=== PATIENT | female | born 2005 | race Caucasian/White ===

== ENCOUNTER 2024-10-18 17:53 | Inpatient (IN) | payer OTHER ==
[~2024-10-18] VITALS: Ht 160 cm; Wt 95.7 kg
[2024-10-19] MEDS ORDERED: MAGNESIUM HYDROXIDE/AL HYDROX 30 ML CUP PO PRN (06:00)
[2024-10-19] MEDS ORDERED: LACTATED RINGER'S 1,000 ML IV SCH (06:00)
[2024-10-19] MEDS ORDERED: CALCIUM CARBONATE 500 MG CHEW PO PRN (06:00)
[2024-10-19] MEDS ORDERED: OXYTOCIN/0.9 % SODIUM CHLORIDE 30 UNITS/500 ML BAG IV SCH (06:30)
[2024-10-19] MEDS ORDERED: OXYTOCIN/0.9 % SODIUM CHLORIDE 500 ML IV SCH ×2 (06:30→18:15)
[2024-10-19 07:14] LABS: AMPHETAMINES, URINE NEGATIVE (NEGATIVE); BARBITURATES, URINE NEGATIVE (NEGATIVE); BENZODIAZEPINE, URINE NEGATIVE (NEGATIVE); BUPRENORPHINE, URINE NEGATIVE (NEGATIVE); CANNABINOID, URINE NEGATIVE (NEGATIVE); COCAINE, URINE NEGATIVE (NEGATIVE); ECSTASY, URINE NEGATIVE (NEGATIVE); FENTANYL, URINE NEGATIVE (NEGATIVE); METHADONE, URINE NEGATIVE (NEGATIVE); OPIATES, URINE NEGATIVE (NEGATIVE); OXYCODONE, URINE NEGATIVE (NEGATIVE); PHENCYCLIDINE, URINE NEGATIVE (NEGATIVE)
[2024-10-19 07:24] VITALS: BP 135/75
[2024-10-19] MEDS ORDERED: SODIUM CHLORIDE 45 ML BTL NAS PRN (07:45)
[2024-10-19 08:21] LABS: HEMATOCRIT 36.8 % (35.0-50.0); HEMOGLOBIN 12.1 g/dL (12.0-18.0); MCH 29.1 (27-36); RBC 4.18 M/ul (4.3-5.7); RDW 14.8 (10.5-15.0)
[2024-10-19 08:55] LABS: ABO B; ANTIBODY SCREEN NEGATIVE; RH POSITIVE
[2024-10-19] MEDS ORDERED: ROPIVACAINE 0.2% 200 ML BAG ONE (13:05)
[2024-10-19] MEDS ORDERED: fentaNYL citrate 100 MCG/2 ML VIAL ONE (13:06)
[2024-10-19] MEDS ORDERED: LACTATED RINGER'S 2,000 ML IV ONE (13:15)
[2024-10-19] MEDS ORDERED: ROPIVACAINE 0.2% 200 ML BAG EPIDURAL SCH (13:15)
[2024-10-19] MEDS ORDERED: ePHEDrine sulfate 5 MG/ML SYRINGE IV PRN (13:15)
[2024-10-19] MEDS ORDERED: LACTATED RINGER'S 500 ML IV PRN (13:15)
[2024-10-19] MEDS ORDERED: TRANEXAMIC ACID IN NACL,ISO-OS 0 ML IV ONE (17:18)
[2024-10-19] MEDS ORDERED: LIDOCAINE 2% VISCOUS 6 ML SYR TOP ONE (18:15)
[2024-10-19] MEDS ORDERED: MAGNESIUM HYDROXIDE 30 ML UDC PO PRN (18:15)
[2024-10-19] MEDS ORDERED: WITCH HAZEL/GLYCERIN 1 EA PAD TOP PRN (18:15)
[2024-10-19] MEDS ORDERED: IBUPROFEN 600 MG TAB PO PRN (18:15)
[2024-10-19] MEDS ORDERED: ACETAMINOPHEN 325 MG TAB PO PRN (18:15)
[2024-10-19] MEDS ORDERED: HYDROCORTISONE ACETATE 25 MG SUPP PR PRN (18:15)
[2024-10-19] MEDS ORDERED: BENZOCAINE 60 ML AEROSOL TOP PRN (18:15)
[2024-10-19] MEDS ORDERED: PHYTONADIONE 1 MG/0.5 ML AMP IM SCH (18:30)
[2024-10-19] MEDS ORDERED: SENNOSIDES/DOCUSATE 1 EA TAB PO SCH (21:00)
--- NOTE | 2024-10-21 08:43 | PR ---
[facility] [address] [place], [place] [address] Signed PP Progress Notes Datetime Report Generated by CPN: 10/21/2024 08:43 SUBJECTIVE: [id number] Pain: Within Normal Limits Nausea/Vomiting: Denies Flatus: Yes Vital Signs: [id number] Vital Signs: Reviewed; Within Normal Limits EXAM: Ongoing Cardiovascular: Normal Respiratory: Normal Abdomen/Uterus: Normal Lochia: Normal Vulva/Perineum: Not Done Breasts: Normal CVA Tenderness: Not Done Extremities: Normal Incision: Not Applicable Progress: Normal IMPRESSION/PLAN/PROCEDURES: [id number] Impression: Normal Progression Plan: Discharge Other Plans: Discharge tomorrow Progress Notes: Recovering well. No concerns. Will D/C today. Signing Physician: Ely Padilla MD Copies: ~ *Electronically Signed* 10/21/24 0843 ELY PADILLA MD PATIENT NAME: SUSY VALENTINE PROGRESS NOTE DATE OF : 04 PHYSICIAN: ELY PADILLA MD RPT #: [id number] REPORT IS CONFIDENTIAL AND NOT TO BE RELEASED WITHOUT AUTHORIZATION
== END 2024-10-21 13:35 | disposition home or self-care (01) | DRG 807 ==
LOC: FBC 10-19 06:00
PROVIDERS: ADMIT Obstetrics & Gynecology; ATTEND Obstetrics & Gynecology
PROC: 10E0XZZ Delivery of Products of Conception, External Approach (ICD-10-PCS; principal; 2024-10-19)
PROC: 0KQM0ZZ Repair Perineum Muscle, Open Approach (ICD-10-PCS; 2024-10-19)
PROC: 3E0DXGC Introduction of Other Therapeutic Substance into Mouth and Pharynx, External Approach (ICD-10-PCS; 2024-10-19)
PROC: 3E0R3BZ Introduction of Anesthetic Agent into Spinal Canal, Percutaneous Approach (ICD-10-PCS; 2024-10-19)
PROC: 00HU33Z Insertion of Infusion Device into Spinal Canal, Percutaneous Approach (ICD-10-PCS; 2024-10-19)
DX: O48.0 Post-term pregnancy (principal); Z37.0 Single live birth; O77.0 Labor and delivery complicated by meconium in amniotic fluid; Z3A.40 40 weeks gestation of pregnancy; O70.1 Second degree perineal laceration during delivery; O99.334 Smoking (tobacco) complicating childbirth; F17.200 Nicotine dependence, unspecified, uncomplicated
CPT/HCPCS: 01960; 36415; 80307; 85027; 86850; 86900; 86901; A9270; J2795; J3010